=== PATIENT | female | born 1985 | race Caucasian/White ===

== ENCOUNTER 2016-08-11 12:34 | Inpatient (IN) | payer OTHER ==
[~2016-08-11] VITALS: Ht 175.3 cm; Wt 81.5 kg
[~2016-08-11 12:34] MED LIST: ATROVENT 00.5 MG/2.5 IH; CEFDINIR300 MG PO; DULERA 100 MCG/13 GM IH; DULOXETINE HCL30 MG PO; DUONEB 2.5-0.5 M3 ML AEROSOL; FENTANYL1 EAC5 TD; MONTELUKAST SOD10 MG PO; NORTRIPTYLINE H25 MG PO; OXYCODONE HCL5 MG PO; PHENERGAN-CODE120 ML PO; PREDNISONE10 MG PO; PREDNISONE20 MG PO; PROVENTIL,2.5 MG/3 M IH; TIZANIDINE HCL4 M1 PO; TIZANIDINE HCL4 MG PO; ZOFRAN4 MG PO
[2016-08-11 14:02] LABS: HEMATOCRIT 40.8 % (36.0-46.0); MCH 32.5 PG (29.0-34.0); MCHC 36.3 G/DL (30.0-36.0); MCV 89.7 FL (83-99); MEAN PLAT.VOLUME 10.2 uM^3 (9.5-12.4); PLATELET COUNT 197 K/uL (156-360); RBC DIS.WIDTH-CV 11.5 % (11.8-14.6); RBC DIS.WIDTH-SD 37.7 % (39-53); RED BLOOD COUNT 4.55 M/uL (3.80-5.20); WHITE BLOOD COUNT 10.8 K/uL (4.1-10.2)
[2016-08-11 14:27] LABS: CHLORIDE 106 mEq/L (99-109); POTASSIUM 3.8 mEq/L (3.7-5.4); SODIUM 137 mEq/L (136-147)
[2016-08-11 14:29] LABS: GLUCOSE 106 mg/dL (70-99)
[2016-08-11 14:31] LABS: ANION GAP 9 MEQ/L (2-14); TOTAL BILIRUBIN 0.9 mg/dL (0.0-1.0)
[2016-08-11 14:33] LABS: ALKALINE PHOSPHATASE 58 IU/L (3-129); GFR ESTIMATE (CALCULATED) > 59 mL/min/
[2016-08-11 14:34] LABS: UREA NITROGEN (BUN) 14 mg/dL (9-23)
[2016-08-11 15:18] LABS: D-DIMER ELISA 0.41 mg/L FEU (< 0.57)
[2016-08-11] MEDS ORDERED: TIZANIDINE HCL4 MG PO (16:19)
[2016-08-11] MEDS ORDERED: DURAGESIC12 MCG TD (16:20)
[2016-08-11] MEDS ORDERED: DURAGESIC50 MCG TD (16:20)
[2016-08-11] MEDS ORDERED: PHENERGAN1.25 MG/ML PO (16:22)
[2016-08-11] MEDS ORDERED: DUONEB 2.5-0.5 M3 ML AEROSOL (16:23)
[2016-08-11] MEDS ORDERED: EPIPEN ADU0.3 MG/0.3 IM (16:23)
[2016-08-11] MEDS ORDERED: COMBIVENT RESPIM4 GM IH (16:24)
[2016-08-11] MEDS ORDERED: ALLEGRA60 MG PO (16:24)
[2016-08-11] MEDS ORDERED: LORAZEPAM1 MG PO (16:24)
[2016-08-11] MEDS ORDERED: SYMBICORT60 INHALAT IH (16:24)
[2016-08-11] MEDS ORDERED: DELTASONE20 M1 PO ×2 (16:25→16:26)
[2016-08-11 17:14] LABS: ADD MIUA? YES; BILIRUBIN NEGATIVE; BLOOD NEGATIVE; COLOR AMBER ((YELLOW)); GLUCOSE (STRIP) NEGATIVE; KETONES 20; LEUKOCYTES LARGE; NITRITE NEGATIVE; PROTEIN (STRIP) 30; SPECIFIC GRAVITY 1.025 (1.000-1.030)
[2016-08-11 17:31] LABS: BACTERIA 2+ /HPF; CASTS PRESENT /LPF; CRYSTALS NONE SEEN; EPITHELIAL CELLS 3+ /HPF; HYALINE CASTS 0-5 /LPF; MUCUS 3+ /LPF; RED BLOOD CELLS 0-5 /HPF (0-5); UCUL ADDED? NO; WHITE BLOOD CELLS 0-5 /HPF (0-5)
[2016-08-11 17:50] VITALS: BP 137/92
[2016-08-12] VITALS (7 sets, daily range): BP systolic 110–147; BP diastolic 61–85
[2016-08-13 03:25] VITALS: BP 117/63
[2016-08-13 08:18] VITALS: BP 138/79
[2016-08-13 12:18] VITALS: BP 143/83
[2016-08-13 16:16] VITALS: BP 136/78
[2016-08-13 20:17] VITALS: BP 129/78
[2016-08-14] VITALS (7 sets, daily range): BP systolic 109–130; BP diastolic 54–70
[2016-08-14 08:37] LABS: MCH 32.2 PG (29.0-34.0); MCHC 35.2 G/DL (30.0-36.0); MCV 91.3 FL (83-99); MEAN PLAT.VOLUME 9.9 uM^3 (9.5-12.4); PLATELET COUNT 238 K/uL (156-360); RBC DIS.WIDTH-CV 11.4 % (11.8-14.6); RBC DIS.WIDTH-SD 38.7 % (39-53); RED BLOOD COUNT 4.82 M/uL (3.80-5.20); WHITE BLOOD COUNT 14.3 K/uL (4.1-10.2)
[2016-08-14 08:55] LABS: ANION GAP 6 MEQ/L (2-14); CHLORIDE 104 MEQ/L (99-109); GFR ESTIMATE (CALCULATED) > 59 mL/min/; GLUCOSE 109 mg/dL (70-99); SAMPLE HEMOLYSIS CHECK 0; SAMPLE ICTERIC CHECK 0; SAMPLE LIPEMIA CHECK 0; SODIUM 138 MEQ/L (136-147); UREA NITROGEN (BUN) 16 mg/dL (9-23)
[2016-08-14 08:56] LABS: POTASSIUM 4.6 MEQ/L (3.7-5.4)
[2016-08-15 04:01] VITALS: BP 127/71
[2016-08-15 07:51] VITALS: BP 119/71
[2016-08-15 11:39] VITALS: BP 133/87
[2016-08-15] MEDS ORDERED: LEVOFLOXACIN750 MG PO (13:22)
[2016-08-15] MEDS ORDERED: PREDNISONE10 MG PO (13:22)
[2016-08-15] MEDS ORDERED: PROVENTIL,2.5 MG/3 M IH (13:28)
[2016-08-15 17:03] VITALS: BP 136/94
[2016-08-15 19:56] VITALS: BP 135/74
[2016-08-15 23:52] VITALS: BP 102/59
[2016-08-16 03:27] VITALS: BP 106/69
[2016-08-16 07:47] VITALS: BP 97/59
[2016-08-16 11:09] VITALS: BP 139/88
[2016-08-16 15:16] VITALS: BP 134/101
[2016-08-16 16:36] LABS: GLOMERULAR BASEMENT MEMB ABY+ <1.0 AI (<1.0)
[2016-08-18 21:01] LABS: Neutrophil Cytoplasmic Aby Negative (Negative)
== END 2016-08-16 15:35 | disposition home or self-care (01) | DRG 191 ==
LOC: EME 12:34 → EDOF 16:18 → 5SOUTH 16:18
PROVIDERS: Emergency Medicine; Internal Medicine; Nurse Practitioner Adult Health
DX: J44.1 Chronic obstructive pulmonary disease with (acute) exacerbation (principal); J45.901 Unspecified asthma with (acute) exacerbation; N39.0 Urinary tract infection, site not specified; T38.0X5A Adverse effect of glucocorticoids and synthetic analogues, initial encounter; M79.7 Fibromyalgia; R09.02 Hypoxemia; F41.9 Anxiety disorder, unspecified; F17.210 Nicotine dependence, cigarettes, uncomplicated
CPT/HCPCS: 71020; 80048; 80053; 81003; 83520 90; 85027; 85379; 86021 90; 93005; 94640; 94640 76; 94644; 94799; 99202; 99281; 99285; J1885; J2270; J2405; J2920; J2930; J7030; J7512

== ENCOUNTER 2017-06-22 17:03 | Emergency (ER) | payer OTHER ==
[~2017-06-22] VITALS: Ht 175.3 cm; Wt 85.0 kg
[~2017-06-22 17:03] MED LIST changes: +ALLEGRA60 MG PO; +COMBIVENT RESPIM4 GM IH; +DELTASONE20 M1 PO; +DURAGESIC12 MCG TD; +DURAGESIC50 MCG TD; +EPIPEN ADU0.3 MG/0.3 IM; +LEVOFLOXACIN750 MG PO; +LORAZEPAM1 MG PO; +PHENERGAN1.25 MG/ML PO; +SYMBICORT60 INHALAT IH
[2017-06-22 17:42] LABS: CHLORIDE 108 mEq/L (99-109); POTASSIUM 3.9 mEq/L (3.7-5.4); SODIUM 142 mEq/L (136-147)
[2017-06-22 17:44] LABS: GLUCOSE 116 mg/dL (70-99)
[2017-06-22 17:46] LABS: HEMATOCRIT 43.9 % (36.0-46.0); HEMOGLOBIN 15.8 G/DL (11.9-15.5); MCH 32.7 PG (29.0-34.0); MCV 90.9 FL (83-99); PLATELET COUNT 219 K/uL (156-360); RBC DIS.WIDTH-CV 11.8 % (11.8-14.6); RBC DIS.WIDTH-SD 39.4 % (39-53); RED BLOOD COUNT 4.83 M/uL (3.80-5.20)
[2017-06-22 17:48] LABS: CREATININE 0.8 mg/dL (0.6-1.3); GFR ESTIMATE (CALCULATED) > 59 mL/min/
[2017-06-22 17:49] LABS: UREA NITROGEN (BUN) 14 mg/dL (9-23)
[2017-06-22] MEDS ORDERED: FLONASE16 G1 BOTH NARES (19:32)
[2017-06-22] MEDS ORDERED: VENTOLIN HFA18 GM IH (19:32)
[2017-06-22] MEDS ORDERED: ROBITUSSIN100 MG/5 M PO (19:32)
[2017-06-22 20:19] VITALS: BP 145/85
== END 2017-06-22 20:19 | disposition home or self-care (01) ==
LOC: EME 17:03
DX: J20.9 Acute bronchitis, unspecified (principal); J44.9 Chronic obstructive pulmonary disease, unspecified; N18.9 Chronic kidney disease, unspecified; M79.7 Fibromyalgia; M32.9 Systemic lupus erythematosus, unspecified; G43.909 Migraine, unspecified, not intractable, without status migrainosus; F41.9 Anxiety disorder, unspecified; F32.9 Major depressive disorder, single episode, unspecified; F17.200 Nicotine dependence, unspecified, uncomplicated; Z79.51 Long term (current) use of inhaled steroids; Z90.710 Acquired absence of both cervix and uterus; Z88.6 Allergy status to analgesic agent; Z88.5 Allergy status to narcotic agent; Z88.0 Allergy status to penicillin; Z88.8 Allergy status to other drugs, medicaments and biological substances; Z91.018 Allergy to other foods; Z91.02 Food additives allergy status; Z91.041 Radiographic dye allergy status
CPT/HCPCS: 71046; 80048; 85027; 94640; 99281; 99284

== ENCOUNTER 2017-09-18 19:12 | Emergency (ER) | payer OTHER ==
[~2017-09-18] VITALS: Ht 175.3 cm; Wt 85.5 kg
[~2017-09-18 19:12] MED LIST changes: +FLONASE16 G1 BOTH NARES; +ROBITUSSIN100 MG/5 M PO; +VENTOLIN HFA18 GM IH
[2017-09-18 19:35] LABS: HEMATOCRIT 43.1 % (36.0-46.0); HEMOGLOBIN 15.3 G/DL (11.9-15.5); MCH 32.8 PG (29.0-34.0); MCHC 35.5 G/DL (30.0-36.0); MCV 92.3 FL (83-99); PLATELET COUNT 243 K/uL (156-360); RBC DIS.WIDTH-SD 40.6 % (39-53); RED BLOOD COUNT 4.67 M/uL (3.80-5.20)
[2017-09-18 19:51] LABS: CHLORIDE 109 mEq/L (99-109); SODIUM 140 mEq/L (136-147)
[2017-09-18 19:52] LABS: GLUCOSE 106 mg/dL (70-99)
[2017-09-18 19:56] LABS: CREATININE 0.9 mg/dL (0.6-1.3); GFR ESTIMATE (CALCULATED) > 59 mL/min/
[2017-09-18 19:57] LABS: UREA NITROGEN (BUN) 11 mg/dL (9-23)
[2017-09-18 22:16] VITALS: BP 129/68
== END 2017-09-18 22:24 | disposition home or self-care (01) ==
LOC: EME 19:12
DX: J45.901 Unspecified asthma with (acute) exacerbation (principal); J44.9 Chronic obstructive pulmonary disease, unspecified; Z90.710 Acquired absence of both cervix and uterus; F17.200 Nicotine dependence, unspecified, uncomplicated; Z71.6 Tobacco abuse counseling; N18.9 Chronic kidney disease, unspecified; Z88.0 Allergy status to penicillin
CPT/HCPCS: 71046; 80048; 85027; 94640; 94644; 99281; 99284; J1885; J2930; J7030; J7512